=== PATIENT | male | born 1945 | race Caucasian/White ===

== ENCOUNTER → 2017-03-04 | Outpatient (CLI) | payer MEDICARE, OTHER ==
[~2017-03-04] MED LIST: AMIO200T2 PO; ASPI-586 PO; ATOR10TA PO; CEFD300C PO; CLOP75TA3 PO; CLPD75T PO; LOSA50TA2 PO; LSRT50T PO; METO-270 PO; MTP25TSR PO; OMEP20CA6 PO; OMEP20TA PO; PANT40TA2 PO; ROSU5TAB PO; SUCR1TAB29 PO
[2017-03-04 08:58] LABS: MEAN CORPUSCULAR HEMOGLOBIN 28.8 PG (26.0-34.0); MEAN CORPUSCULAR HGB CONC 33.9 g/dL (31.0-37.0); MEAN CORPUSCULAR VOLUME 85 FL (80-100); MEAN PLATELET VOLUME 9.3 FL (6.0-9.5); PLATELET COUNT 246 10^3uL (150-450); WHITE BLOOD COUNT 5.88 10^3uL (4.0-11.0)
[2017-03-04 09:04] LABS: BAND NEUTROPHILS % 0 % (0-6); EOSINOPHILS % 11 % (0-4); LYMPHOCYTES # 0.8 #; MONOCYTES # 0.2 #; MONOCYTES % 3 % (3-11); RBC MORPH NORMAL (NORMAL); SEGMENTED NEUTROPHILS % 72 % (51-67); TOTAL CELLS COUNTED 100
[2017-03-04 09:14] LABS: ALBUMIN 3.9 g/dL (3.4-5.0); ANION GAP 16.7 MEQ/L (3-15); CALCULATED IONIZED CALCIUM 3.7 mg/dL (3.8-4.6); MAGNESIUM* 1.7 mg/dL (1.6-2.3); PHOSPHORUS 3.8 mg/dL (2.4-4.9); TOTAL PROTEIN 7.4 g/dL (6.4-8.5)
[2017-03-04 18:15] LABS: IRON 57 ug/dL (65-175); UNBOUND IRON CONTENT 270 ug/dl (126-382)
== END ==
LOC: LAB 08:28
PROVIDERS: ATTEND Internal Medicine Hematology & Oncology
DX: D50.9 Iron deficiency anemia, unspecified (principal); R91.1 Solitary pulmonary nodule
CPT/HCPCS: 36415; 80053; 82728; 82784; 83540; 83550; 83615; 83735; 84100; 84155; 85007; 85027; 86334

== ENCOUNTER → 2017-03-07 | Outpatient (CLI) | payer MEDICARE, OTHER ==
--- NOTE | 2017-03-07 09:36 | Diagnostic Imaging Report ---
PROCEDURE: CT chest with contrast only. TECHNIQUE: Multiple contiguous axial images were obtained through the chest after administration of intravenous contrast. INDICATION: Followup of solitary pulmonary nodule. Comparison with 09/17/2016. FINDINGS: Lungs are well aerated. The somewhat spiculated appearing nodule noted in the right upper lobe adjacent to the right middle lobe in the periphery of the lung does not appear to have changed significantly in appearance. No new pulmonary nodules are present. There is mild apical pleural scarring again present. There is good opacification of the aorta and pulmonary arteries. Aorta appears normal. No mediastinal or hilar adenopathy is demonstrated. There is dense calcification in coronary arteries. No pleural effusions or pericardial effusion. Bone windows show no blastic or lytic lesions. IMPRESSION: 1. Stable appearing somewhat nodule in the right upper lobe peripherally with somewhat irregular margins. 2. No new lesions have developed. Dictated by: Dictated on workstation # [id number]
== END ==
LOC: RAD 07:47
PROVIDERS: ATTEND Internal Medicine Hematology & Oncology
DX: D50.9 Iron deficiency anemia, unspecified (principal); R91.1 Solitary pulmonary nodule
CPT/HCPCS: 71260; Q9967